=== PATIENT | female | born 2000 | race Caucasian/White ===

== ENCOUNTER 2024-03-24 16:12 | Emergency (ER) | payer OTHER ==
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
[2024-03-24 18:15] VITALS: BP 120/78; TEMP 99.6; O2SAT 97
== END 2024-03-24 17:42 | disposition home or self-care (01) ==
LOC: ER 16:12
DX: Z77.098 Contact with and (suspected) exposure to other hazardous, chiefly nonmedicinal, chemicals (principal)